=== PATIENT | male | born 1990 | race Two or more races ===

== ENCOUNTER 2017-04-16 03:56 | Emergency (ER) | payer SELFPAY ==
[~2017-04-16] VITALS: Ht 170.2 cm; Wt 90.7 kg
[2017-04-16 07:49] LABS: Albumin 3.6 g/dL (3.4-5.0); Alkaline Phosphatase 90 U/L (45-117); Anion Gap 11 (5-15); Aspartate Aminotransferase 18 U/L (15-37); BUN/Creatinine Ratio 21.7; Bilirubin, Total 0.1 mg/dL (0.2-1.0); Blood Urea Nitrogen 18 mg/dL (7-18); Calcium 8.3 mg/dL (8.5-10.1); Carbon Dioxide 26 mmol/L (21-32); Chloride 105 mmol/L (98-107); GFR African American 143 mL/min; GFR Non-African American 118 mL/min; Glucose 119 mg/dL (74-106); Potassium 3.8 mmol/L (3.5-5.1); Sodium 142 mmol/L (136-145); Total Protein 7.4 g/dL (6.4-8.2)
[2017-04-16 07:51] LABS: Lymphocytes % (auto) 10.1 % (10.0-50.0); Neutrophils % (auto) 84.2 % (37.0-80.0); White Blood Cell 17.4 10^3/uL (4.4-10.8)
[2017-04-16 07:52] LABS: Basophils # (auto) 0 uL; Basophils % (auto) 0.2 % (0.0-2.0); Eosinophils # (auto) 0 uL; Eosinophils % (auto) 0.2 % (0.0-7.0); Hematocrit 44.1 % (41.0-53.0); Hemoglobin 15.1 g/dL (13.5-17.5); Lymphocytes # (auto) 1.8 uL; Mean Corpuscular Hemoglobin 30.6 pg (28.0-32.0); Mean Corpuscular Hgb Conc. 34.2 g/dL (32.0-36.0); Mean Corpuscular Volume 89.5 fL (80.0-100.0); Mean Platelet Volume 7.7 fL (7.4-10.4); Monocytes # (auto) 0.9 uL; Monocytes % (auto) 5.3 % (0.0-12.0); Neutrophils # (auto) 14.6 uL; Platelet Count (auto) 435 10^3/uL (140-450); Red Cell Distribution Width 13.7 % (11.6-16.0)
[2017-04-16] MEDS ORDERED: SODIUM CHLORIDE 0.9% 1,000 ML IV ONE (08:03)
[2017-04-16] MEDS ORDERED: ASPirin 81 mg TAB PO ONE (08:15)
[2017-04-16] MEDS ORDERED: PANTOPRAZOLE SODIUM 40 MG/10 ML VIAL IV ONE (08:15)
[2017-04-16] MEDS ORDERED: cefTRIAXone 1GM/50ML D5W 50 ML IV ONE (08:15)
[2017-04-16 10:55] VITALS: BP 142/73
== END 2017-04-16 10:59 | disposition home or self-care (01) ==
LOC: ER 03:56
DX: K29.70 Gastritis, unspecified, without bleeding (principal); E86.0 Dehydration
CPT/HCPCS: 36415; 71010; 80053; 83735; 84484; 85025; 87040; 93005; 96365; 96366; 96375; 99285; C9113; J0696; J7030; 96361

== ENCOUNTER 2023-03-28 17:47 | Emergency (ER) | payer OTHER ==
[~2023-03-28] VITALS: Ht 175.3 cm; Wt 81.0 kg
[2023-03-28 18:33] VITALS: BP 129/89
[2023-03-28 19:16] LABS: Eosinophils # (auto) 0 10 ^3/uL (0-0.8); Eosinophils % (auto) 0.1 % (0.0-7.0)
[2023-03-28 19:18] LABS: Basophils # (auto) 0 10 ^3/uL (0-0.2); Basophils % (auto) 0.2 % (0.0-2.0); Hematocrit 47.9 % (41.0-53.0); Hemoglobin 16.1 g/dL (13.5-17.5); Lymphocytes # (auto) 1.4 10 ^3/uL (0.4-5.4); Lymphocytes % (auto) 9.8 % (10.0-50.0); Mean Corpuscular Hemoglobin 29.9 pg (28.0-32.0); Mean Corpuscular Hgb Conc. 33.6 g/dL (32.0-36.0); Monocytes # (auto) 0.8 10 ^3/uL (0-1.3); Monocytes % (auto) 5.6 % (0.0-12.0); Neutrophils # (auto) 11.7 10 ^3/uL (1.6-8.6); Neutrophils % (auto) 84.3 % (37.0-80.0); Red Blood Cells 5.39 10^6/uL (4.5-5.90); Red Cell Distribution Width 14.4 % (11.8-14.3); White Blood Cell 13.9 10^3/uL (4.4-10.8)
[2023-03-28 19:39] LABS: Calcium 9.7 mg/dL (8.5-10.1); Potassium 4.2 mmol/L (3.5-5.1)
[2023-03-28 19:43] LABS: Bilirubin, Total 0.5 mg/dL (0.2-1.0); Total Protein 7.6 g/dL (6.4-8.2)
== END 2023-03-29 04:22 | disposition left against medical advice (07) ==
LOC: EDBD 17:47 → ER 17:47
DX: R07.89 Other chest pain (principal); F15.10 Other stimulant abuse, uncomplicated
CPT/HCPCS: 36415; 71045; 80053; 84484; 85025; 93005

== ENCOUNTER 2023-09-17 18:22 | Emergency (ER) | payer OTHER ==
[~2023-09-17] VITALS: Ht 170.2 cm; Wt 86.5 kg
[2023-09-17 18:43] VITALS: BP 138/90; PULSE 120; RESP 18; O2SAT 98
== END 2023-09-17 23:29 | disposition left against medical advice (07) ==
LOC: ER 18:22
DX: S02.0XXA Fracture of vault of skull, initial encounter for closed fracture (principal); S60.221A Contusion of right hand, initial encounter; Y04.2XXA Assault by strike against or bumped into by another person, initial encounter; Y93.89 Activity, other specified; Y92.89 Other specified places as the place of occurrence of the external cause; Y99.8 Other external cause status
CPT/HCPCS: 70450; 73130